=== PATIENT | male | born 1955 | race Caucasian/White ===

== ENCOUNTER → 2024-07-23 | Outpatient (REF) | payer MEDICARE, OTHER, SELFPAY ==
[2024-07-23 08:15] LABS: Absolute Lymphocyte Count 0.77 X10^3/uL (0.83-4.51); Absolute Neutrophil Count 12.8 X10^3/uL (2.0-7.7); Basophil# 0.04 X10^3/uL; Basophil% 0.3 % (0-1); Eosinophil# 0.37 X10^3/uL; Eosinophils% 2.5 % (0-5); Hematocrit 32.1 % (40-54); Hemoglobin 9.9 g/dL (13.0-16.5); Lymphocyte # 0.77 X10^3/ul (0.83-4.51); Lymphocyte % 5.2 % (19-41); Mean Corp Hgb Conc 30.8 g/dL (32-36); Mean Corpuscular Hgb 29.5 pg (27.0-32.0); Mean Corpuscular Volume 95.5 fL (80-94); Mean Platelet Vol. 10.7 fl (6.2-12.0); Monocyte% 4.7 % (0-10); NRBC Flagged by Analyzer 0 % (0-5); Neutrophil # 12.82 X10^3/uL (2.7-7.7); Neutrophil % 86.7 % (47-70); Platelet Count 332 K/mm3 (150-450); RBC Distribution Width CV 14.7 % (11.6-14.6); RBC Distribution Width SD 50.7 fl (35.1-43.9); Red Blood Count 3.36 M/mm3 (4.6-6.2); White Blood Count 14.8 K/mm3 (4.4-11.0)
[2024-07-23 08:37] LABS: ALB/GLOB Ratio 0.5 RATIO (0.9-2.4); AST(SGOT) 17 U/L (15-37); Alanine Aminotransfer ALT/SGPT 25 U/L (16-61); Albumin, Serum 2.2 g/dL (3.2-5.0); Alkaline Phosphatase 66 U/L (45-117); Anion Gap 8 (5-15); BUN 16 mg/dL (7-18); BUN/Creat Ratio 22.8 RATIO (10-20); CPK Total, Creatine Kinase 46 U/L (39-308); Calcium,Total 8.8 mg/dL (8.5-10.1); Chloride 105 mmol/L (98-107); EST Glomerular Filtration Rate 119 mL/min (>60); Est Glom Filt Rate - Afr Amer 144 mL/min (>60); Globulin 4.4 g/dL (2.2-4.2); Glucose 183 mg/dL (74-106); Potassium 4.2 mmol/L (3.5-5.1); Protein, Total 6.6 g/dL (6.4-8.2); Sodium Level 137 mmol/L (136-145)
== END ==
LOC: OLS.SANC 05:00
PROVIDERS: Visit Provider Internal Medicine
DX: E78.5 Hyperlipidemia, unspecified (principal); A52.3 Neurosyphilis, unspecified; A53.0 Latent syphilis, unspecified as early or late
CPT/HCPCS: 36415; 80053; 82550; 85025

== ENCOUNTER → 2024-07-30 | Outpatient (REF) | payer MEDICARE, OTHER, SELFPAY ==
[2024-07-30 08:06] LABS: Absolute Lymphocyte Count 1.12 X10^3/uL (0.83-4.51); Absolute Neutrophil Count 7.5 X10^3/uL (2.0-7.7); Basophil# 0.04 X10^3/uL; Basophil% 0.4 % (0-1); Eosinophils% 7.9 % (0-5); Hematocrit 31.4 % (40-54); Hemoglobin 9.9 g/dL (13.0-16.5); Lymphocyte # 1.12 X10^3/ul (0.83-4.51); Lymphocyte % 11.1 % (19-41); Mean Corp Hgb Conc 31.5 g/dL (32-36); Mean Corpuscular Hgb 28.4 pg (27.0-32.0); Mean Platelet Vol. 10.8 fl (6.2-12.0); Monocyte# 0.49 X10^3/uL; Monocyte% 4.8 % (0-10); NRBC Flagged by Analyzer 0 % (0-5); Neutrophil # 7.46 X10^3/uL (2.7-7.7); Neutrophil % 73.7 % (47-70); Platelet Count 387 K/mm3 (150-450); RBC Distribution Width CV 15.1 % (11.6-14.6); RBC Distribution Width SD 49.4 fl (35.1-43.9); Red Blood Count 3.49 M/mm3 (4.6-6.2); White Blood Count 10.1 K/mm3 (4.4-11.0)
[2024-07-30 08:43] LABS: ALB/GLOB Ratio 0.4 RATIO (0.9-2.4); AST(SGOT) 39 U/L (15-37); Alanine Aminotransfer ALT/SGPT 91 U/L (16-61); Albumin, Serum 1.7 g/dL (3.2-5.0); Alkaline Phosphatase 85 U/L (45-117); Anion Gap 7 (5-15); BUN 15 mg/dL (7-18); BUN/Creat Ratio 28.8 RATIO (10-20); CPK Total, Creatine Kinase 29 U/L (39-308); Calcium,Total 8.6 mg/dL (8.5-10.1); Chloride 103 mmol/L (98-107); Creatinine, Serum 0.52 mg/dL (0.70-1.30); EST Glomerular Filtration Rate 167 mL/min (>60); Est Glom Filt Rate - Afr Amer 202 mL/min (>60); Globulin 4.6 g/dL (2.2-4.2); Glucose 125 mg/dL (74-106); Potassium 4.2 mmol/L (3.5-5.1); Protein, Total 6.3 g/dL (6.4-8.2); Sodium Level 134 mmol/L (136-145)
== END ==
LOC: OLS.SANC 05:00
DX: E78.5 Hyperlipidemia, unspecified (principal); A52.3 Neurosyphilis, unspecified
CPT/HCPCS: 36415; 80053; 82550; 85025

== ENCOUNTER → 2024-08-06 | Outpatient (REF) | payer MEDICARE, OTHER, SELFPAY ==
[2024-08-06 08:10] LABS: Absolute Lymphocyte Count 1.51 X10^3/uL (0.83-4.51); Absolute Neutrophil Count 7.1 X10^3/uL (2.0-7.7); Basophil# 0.08 X10^3/uL; Basophil% 0.8 % (0-1); Eosinophil# 0.43 X10^3/uL; Eosinophils% 4.3 % (0-5); Hematocrit 32.4 % (40-54); Hemoglobin 10.3 g/dL (13.0-16.5); Lymphocyte # 1.51 X10^3/ul (0.83-4.51); Lymphocyte % 15.2 % (19-41); Mean Corp Hgb Conc 31.8 g/dL (32-36); Mean Corpuscular Hgb 28.9 pg (27.0-32.0); Mean Platelet Vol. 10.6 fl (6.2-12.0); Monocyte# 0.64 X10^3/uL; Monocyte% 6.4 % (0-10); NRBC Flagged by Analyzer 0 % (0-5); Neutrophil # 7.11 X10^3/uL (2.7-7.7); Neutrophil % 71.6 % (47-70); Platelet Count 429 K/mm3 (150-450); RBC Distribution Width CV 15.7 % (11.6-14.6); RBC Distribution Width SD 51.4 fl (35.1-43.9); Red Blood Count 3.56 M/mm3 (4.6-6.2); White Blood Count 9.9 K/mm3 (4.4-11.0)
[2024-08-06 11:16] LABS: ALB/GLOB Ratio 0.5 RATIO (0.9-2.4); AST(SGOT) 21 U/L (15-37); Alanine Aminotransfer ALT/SGPT 44 U/L (16-61); Alkaline Phosphatase 80 U/L (45-117); Anion Gap 8 (5-15); BUN 17 mg/dL (7-18); BUN/Creat Ratio 29.8 RATIO (10-20); CPK Total, Creatine Kinase 42 U/L (39-308); Chloride 105 mmol/L (98-107); Creatinine, Serum 0.57 mg/dL (0.70-1.30); EST Glomerular Filtration Rate 151 mL/min (>60); Est Glom Filt Rate - Afr Amer 182 mL/min (>60); Globulin 4.4 g/dL (2.2-4.2); Glucose 81 mg/dL (74-106); Potassium 4.2 mmol/L (3.5-5.1); Protein, Total 6.4 g/dL (6.4-8.2); Sodium Level 136 mmol/L (136-145)
== END ==
LOC: OLS.SANC 05:00
DX: E78.5 Hyperlipidemia, unspecified (principal); A52.3 Neurosyphilis, unspecified; R82.71 Bacteriuria
CPT/HCPCS: 36415; 80053; 82550; 85025

== ENCOUNTER → 2024-08-13 | Outpatient (REF) | payer MEDICARE, OTHER, SELFPAY ==
[2024-08-13 08:32] LABS: Erythrocyte Sedimentation Rate 54 mm/hr (0-20)
[2024-08-13 08:35] LABS: Absolute Lymphocyte Count 1.21 X10^3/uL (0.83-4.51); Absolute Neutrophil Count 7.5 X10^3/uL (2.0-7.7); Basophil# 0.05 X10^3/uL; Basophil% 0.5 % (0-1); Eosinophil# 0.22 X10^3/uL; Eosinophils% 2.3 % (0-5); Hematocrit 35.6 % (40-54); Hemoglobin 11.1 g/dL (13.0-16.5); Lymphocyte # 1.21 X10^3/ul (0.83-4.51); Lymphocyte % 12.6 % (19-41); Mean Corp Hgb Conc 31.2 g/dL (32-36); Mean Corpuscular Hgb 28.2 pg (27.0-32.0); Mean Corpuscular Volume 90.6 fL (80-94); Mean Platelet Vol. 11.1 fl (6.2-12.0); Monocyte% 6.2 % (0-10); NRBC Flagged by Analyzer 0 % (0-5); Neutrophil # 7.48 X10^3/uL (2.7-7.7); Neutrophil % 77.6 % (47-70); Platelet Count 358 K/mm3 (150-450); RBC Distribution Width CV 15.6 % (11.6-14.6); RBC Distribution Width SD 51.9 fl (35.1-43.9); Red Blood Count 3.93 M/mm3 (4.6-6.2); White Blood Count 9.6 K/mm3 (4.4-11.0)
[2024-08-13 09:08] LABS: ALB/GLOB Ratio 0.5 RATIO (0.9-2.4); AST(SGOT) 23 U/L (15-37); Alanine Aminotransfer ALT/SGPT 39 U/L (16-61); Alkaline Phosphatase 86 U/L (45-117); Anion Gap 10 (5-15); BUN 16 mg/dL (7-18); BUN/Creat Ratio 33.1 RATIO (10-20); CPK Total, Creatine Kinase 54 U/L (39-308); Calcium,Total 8.7 mg/dL (8.5-10.1); Chloride 104 mmol/L (98-107); Creatinine, Serum 0.48 mg/dL (0.70-1.30); EST Glomerular Filtration Rate 182 mL/min (>60); Est Glom Filt Rate - Afr Amer 220 mL/min (>60); Globulin 4.4 g/dL (2.2-4.2); Glucose 100 mg/dL (74-106); Potassium 4.2 mmol/L (3.5-5.1); Protein, Total 6.4 g/dL (6.4-8.2); Sodium Level 137 mmol/L (136-145); Total Bilirubin < 0.10 mg/dL (0.20-1.00)
== END ==
LOC: OLS.SANC 04:00
DX: A52.3 Neurosyphilis, unspecified (principal); G93.41 Metabolic encephalopathy; E78.5 Hyperlipidemia, unspecified
CPT/HCPCS: 36415; 80053; 82550; 85025; 85652; 86140

== ENCOUNTER → 2024-08-20 | Outpatient (REF) | payer MEDICARE, OTHER, SELFPAY ==
[2024-08-20 09:54] LABS: Absolute Lymphocyte Count 1.62 X10^3/uL (0.83-4.51); Absolute Neutrophil Count 4.4 X10^3/uL (2.0-7.7); Basophil# 0.04 X10^3/uL; Basophil% 0.6 % (0-1); Eosinophil# 0.33 X10^3/uL; Eosinophils% 4.6 % (0-5); Hematocrit 35.4 % (40-54); Hemoglobin 10.8 g/dL (13.0-16.5); Lymphocyte # 1.62 X10^3/ul (0.83-4.51); Lymphocyte % 22.6 % (19-41); Mean Corp Hgb Conc 30.5 g/dL (32-36); Mean Corpuscular Hgb 27.9 pg (27.0-32.0); Mean Corpuscular Volume 91.5 fL (80-94); Monocyte# 0.68 X10^3/uL; Monocyte% 9.5 % (0-10); NRBC Flagged by Analyzer 0 % (0-5); Neutrophil # 4.42 X10^3/uL (2.7-7.7); Neutrophil % 61.6 % (47-70); Platelet Count 317 K/mm3 (150-450); RBC Distribution Width CV 15.9 % (11.6-14.6); RBC Distribution Width SD 53.3 fl (35.1-43.9); Red Blood Count 3.87 M/mm3 (4.6-6.2); White Blood Count 7.2 K/mm3 (4.4-11.0)
[2024-08-20 10:54] LABS: ALB/GLOB Ratio 0.5 RATIO (0.9-2.4); AST(SGOT) 27 U/L (15-37); Alanine Aminotransfer ALT/SGPT 45 U/L (16-61); Alkaline Phosphatase 79 U/L (45-117); Anion Gap 8 (5-15); BUN 16 mg/dL (7-18); CPK Total, Creatine Kinase 64 U/L (39-308); Calcium,Total 8.8 mg/dL (8.5-10.1); Chloride 106 mmol/L (98-107); Creatinine, Serum 0.52 mg/dL (0.70-1.30); EST Glomerular Filtration Rate 169 mL/min (>60); Est Glom Filt Rate - Afr Amer 205 mL/min (>60); Globulin 4.4 g/dL (2.2-4.2); Glucose 125 mg/dL (74-106); Potassium 4.3 mmol/L (3.5-5.1); Protein, Total 6.4 g/dL (6.4-8.2); Sodium Level 136 mmol/L (136-145)
== END ==
LOC: OLS.SANC 05:00
PROVIDERS: Visit Provider Internal Medicine
DX: E78.5 Hyperlipidemia, unspecified (principal); A53.0 Latent syphilis, unspecified as early or late
CPT/HCPCS: 36415; 80053; 82550; 85025

== ENCOUNTER → 2024-08-24 | Outpatient (REF) | payer MEDICARE, OTHER, SELFPAY ==
[2024-08-24 10:08] LABS: Hematocrit 38.6 % (40-54); Hemoglobin 12.3 g/dL (13.0-16.5); Mean Corp Hgb Conc 31.9 g/dL (32-36); Mean Corpuscular Hgb 28.5 pg (27.0-32.0); Mean Corpuscular Volume 89.6 fL (80-94); Mean Platelet Vol. 11.6 fl (6.2-12.0); Platelet Count 371 K/mm3 (150-450); RBC Distribution Width CV 15.7 % (11.6-14.6); RBC Distribution Width SD 51.8 fl (35.1-43.9); Red Blood Count 4.31 M/mm3 (4.6-6.2); White Blood Count 10.7 K/mm3 (4.4-11.0)
[2024-08-24 10:47] LABS: Anion Gap 8 (5-15); BUN 16 mg/dL (7-18); BUN/Creat Ratio 26.9 RATIO (10-20); Calcium,Total 9.3 mg/dL (8.5-10.1); Chloride 105 mmol/L (98-107); EST Glomerular Filtration Rate 144 mL/min (>60); Est Glom Filt Rate - Afr Amer 174 mL/min (>60); Glucose 94 mg/dL (74-106); Potassium 4.4 mmol/L (3.5-5.1); Sodium Level 135 mmol/L (136-145)
== END ==
LOC: OLS.SANC 05:00
PROVIDERS: Visit Provider Internal Medicine
DX: E78.5 Hyperlipidemia, unspecified (principal); A52.3 Neurosyphilis, unspecified
CPT/HCPCS: 36415; 80048; 85027

== ENCOUNTER → 2024-08-27 | Outpatient (REF) | payer MEDICARE, OTHER, SELFPAY ==
[2024-08-27 08:01] LABS: Absolute Lymphocyte Count 1.84 X10^3/uL (0.83-4.51); Absolute Neutrophil Count 7.2 X10^3/uL (2.0-7.7); Basophil# 0.05 X10^3/uL; Basophil% 0.5 % (0-1); Eosinophil# 0.18 X10^3/uL; Eosinophils% 1.7 % (0-5); Hematocrit 37.7 % (40-54); Hemoglobin 11.7 g/dL (13.0-16.5); Lymphocyte # 1.84 X10^3/ul (0.83-4.51); Lymphocyte % 17.7 % (19-41); Mean Corpuscular Hgb 27.9 pg (27.0-32.0); Mean Platelet Vol. 11.3 fl (6.2-12.0); Monocyte# 0.98 X10^3/uL; Monocyte% 9.4 % (0-10); NRBC Flagged by Analyzer 0 % (0-5); Neutrophil # 7.24 X10^3/uL (2.7-7.7); Neutrophil % 69.8 % (47-70); Platelet Count 386 K/mm3 (150-450); RBC Distribution Width CV 15.8 % (11.6-14.6); RBC Distribution Width SD 52.3 fl (35.1-43.9); Red Blood Count 4.19 M/mm3 (4.6-6.2); White Blood Count 10.4 K/mm3 (4.4-11.0)
[2024-08-27 08:43] LABS: ALB/GLOB Ratio 0.5 RATIO (0.9-2.4); AST(SGOT) 19 U/L (15-37); Alanine Aminotransfer ALT/SGPT 29 U/L (16-61); Albumin, Serum 2.3 g/dL (3.2-5.0); Alkaline Phosphatase 75 U/L (45-117); Anion Gap 7 (5-15); BUN 16 mg/dL (7-18); BUN/Creat Ratio 29.6 RATIO (10-20); CPK Total, Creatine Kinase 53 U/L (39-308); Chloride 104 mmol/L (98-107); Creatinine, Serum 0.54 mg/dL (0.70-1.30); EST Glomerular Filtration Rate 160 mL/min (>60); Est Glom Filt Rate - Afr Amer 194 mL/min (>60); Globulin 4.3 g/dL (2.2-4.2); Glucose 86 mg/dL (74-106); Potassium 4.3 mmol/L (3.5-5.1); Protein, Total 6.6 g/dL (6.4-8.2); Sodium Level 138 mmol/L (136-145)
== END ==
LOC: OLS.SANC 05:00
DX: E78.5 Hyperlipidemia, unspecified (principal)
CPT/HCPCS: 36415; 80053; 82550; 85025

== ENCOUNTER → 2024-08-31 | Outpatient (REF) | payer MEDICARE, OTHER, SELFPAY ==
[2024-08-31 08:31] LABS: Hematocrit 40.3 % (40-54); Hemoglobin 12.3 g/dL (13.0-16.5); Mean Corp Hgb Conc 30.5 g/dL (32-36); Mean Corpuscular Hgb 28.1 pg (27.0-32.0); Mean Platelet Vol. 11.6 fl (6.2-12.0); Platelet Count 334 K/mm3 (150-450); RBC Distribution Width CV 15.6 % (11.6-14.6); RBC Distribution Width SD 53.4 fl (35.1-43.9); Red Blood Count 4.38 M/mm3 (4.6-6.2); White Blood Count 13.3 K/mm3 (4.4-11.0)
== END ==
LOC: OLS.SANC 05:00
PROVIDERS: Visit Provider Internal Medicine
DX: E78.5 Hyperlipidemia, unspecified (principal); A52.3 Neurosyphilis, unspecified
CPT/HCPCS: 36415; 85027

== ENCOUNTER → 2024-09-04 | Outpatient (REF) | payer MEDICARE, OTHER, SELFPAY ==
[2024-09-04 08:44] LABS: Absolute Lymphocyte Count 1.36 X10^3/uL (0.83-4.51); Absolute Neutrophil Count 7.1 X10^3/uL (2.0-7.7); Basophil# 0.05 X10^3/uL; Basophil% 0.5 % (0-1); Eosinophil# 0.28 X10^3/uL; Eosinophils% 2.9 % (0-5); Hematocrit 36.5 % (40-54); Hemoglobin 11.7 g/dL (13.0-16.5); Lymphocyte # 1.36 X10^3/ul (0.83-4.51); Lymphocyte % 14.1 % (19-41); Mean Corp Hgb Conc 32.1 g/dL (32-36); Mean Corpuscular Hgb 28.1 pg (27.0-32.0); Mean Corpuscular Volume 87.7 fL (80-94); Mean Platelet Vol. 10.9 fl (6.2-12.0); Monocyte% 8.3 % (0-10); NRBC Flagged by Analyzer 0 % (0-5); Neutrophil # 7.08 X10^3/uL (2.7-7.7); Neutrophil % 73.2 % (47-70); Platelet Count 411 K/mm3 (150-450); RBC Distribution Width CV 15.5 % (11.6-14.6); RBC Distribution Width SD 49.2 fl (35.1-43.9); Red Blood Count 4.16 M/mm3 (4.6-6.2); White Blood Count 9.7 K/mm3 (4.4-11.0)
[2024-09-04 09:40] LABS: ALB/GLOB Ratio 0.4 RATIO (0.9-2.4); AST(SGOT) 15 U/L (15-37); Alanine Aminotransfer ALT/SGPT 22 U/L (16-61); Albumin, Serum 2.1 g/dL (3.2-5.0); Alkaline Phosphatase 77 U/L (45-117); Anion Gap 9 (5-15); BUN 14 mg/dL (7-18); BUN/Creat Ratio 24.4 RATIO (10-20); CPK Total, Creatine Kinase 53 U/L (39-308); Calcium,Total 9.1 mg/dL (8.5-10.1); Chloride 102 mmol/L (98-107); Creatinine, Serum 0.57 mg/dL (0.70-1.30); EST Glomerular Filtration Rate 150 mL/min (>60); Est Glom Filt Rate - Afr Amer 181 mL/min (>60); Globulin 4.9 g/dL (2.2-4.2); Glucose 127 mg/dL (74-106); Potassium 4.5 mmol/L (3.5-5.1); Sodium Level 135 mmol/L (136-145)
== END ==
LOC: OLS.SANC 04:00
DX: A52.3 Neurosyphilis, unspecified (principal); E78.5 Hyperlipidemia, unspecified; Z79.899 Other long term (current) drug therapy
CPT/HCPCS: 36415; 80053; 82550; 85025

== ENCOUNTER → 2024-10-22 | Outpatient (REF) | payer MEDICARE, OTHER, SELFPAY ==
[2024-10-22 08:34] LABS: Mucous, Urine 0 SEEN /hpf (<or=2+); Red Blood Cells-Urine 0 SEEN /hpf (0-5); Squamous Epithelial Cells - UA 0 SEEN /hpf (0-5)
[2024-10-22 08:59] LABS: Color, Urine Yellow (Yellow); Glucose, Dipstick Normal (Normal); Ketone-Dipstick Negative (Negative); Leukocyte Esterase-Dipstick 500 /ul (Negative); Nitrite-Dipstick Negative (Negative); Occult Blood-Urine 25 /ul (Negative); Protein-Dipstick 30 mg/dl (Negative); Specific Gravity, Urine 1.015 (1.002-1.030); Urine Bilirubin Dipstick Negative (Negative); Urine Clarity Cloudy (Clear); Urine Urobilinogen Normal (Normal)
[2024-10-22 09:21] LABS: Amorphous Sediment 2+; Bacteria 1+ /hpf (None Seen); Triple Phosphate Crystals Ur 2+ /hpf (<or=1+); White Blood Cells 0-5 SEEN /hpf (0-5)
== END ==
LOC: OLS.SANC 05:00
DX: R39.9 Unspecified symptoms and signs involving the genitourinary system (principal)
CPT/HCPCS: 81001; 87077; 87086; 87088; 87186

== ENCOUNTER → 2024-11-06 | Outpatient (REF) | payer MEDICARE, OTHER, SELFPAY ==
[2024-11-06 09:26] LABS: Hematocrit 36.8 % (40-54); Hemoglobin 11.8 g/dL (13.0-16.5); Mean Corp Hgb Conc 32.1 g/dL (32-36); Mean Corpuscular Hgb 27.2 pg (27.0-32.0); Mean Corpuscular Volume 84.8 fL (80-94); Mean Platelet Vol. 11.1 fl (6.2-12.0); Platelet Count 383 K/mm3 (150-450); RBC Distribution Width CV 15.7 % (11.6-14.6); RBC Distribution Width SD 48.6 fl (35.1-43.9); Red Blood Count 4.34 M/mm3 (4.6-6.2); White Blood Count 8.3 K/mm3 (4.4-11.0)
[2024-11-06 09:41] LABS: Valproic Acid (Depakene) Level 6 ug/mL (50-100)
== END ==
LOC: OLS.SANC 05:00
DX: Z79.899 Other long term (current) drug therapy (principal)
CPT/HCPCS: 36415; 80164; 85027

== ENCOUNTER → 2024-11-29 | Outpatient (REF) | payer MEDICARE, OTHER, SELFPAY ==
[2024-11-29 09:23] LABS: Syphilis Antibodies Reactive
== END ==
LOC: OLS.SANC 05:00
DX: E78.5 Hyperlipidemia, unspecified (principal); A52.3 Neurosyphilis, unspecified; A53.0 Latent syphilis, unspecified as early or late
CPT/HCPCS: 36415; 86780

== ENCOUNTER → 2025-03-13 05:00 | Outpatient (REF) | payer MEDICARE, OTHER, SELFPAY ==
[2025-03-13 10:13] LABS: Valproic Acid (Depakene) Level 37 ug/mL (50-100)
== END ==
LOC: OLS.SANC 05:00
PROVIDERS: Visit Provider Internal Medicine
DX: Z79.899 Other long term (current) drug therapy (principal)
CPT/HCPCS: 36415; 80164